=== PATIENT | male | born 2000 | race Caucasian/White ===

== ENCOUNTER 2019-08-23 23:33 | Emergency (ER) | payer BC ==
[~2019-08-23] VITALS: Ht 175.3 cm; Wt 70.8 kg
[2019-08-23 23:38] VITALS: BP 117/77
[2019-08-23] MEDS ORDERED: NACL 0.9% 1,000 ML IV ONE (23:45)
[2019-08-23] MEDS ORDERED: ONDANSETRON 4 MG/2 ML VIAL IVP ONE (23:45)
[2019-08-24 06:17] VITALS: BP 118/77
== END 2019-08-24 06:18 | disposition home or self-care (01) ==
LOC: MED 23:33
DX: F10.129 Alcohol abuse with intoxication, unspecified (principal); Y90.9 Presence of alcohol in blood, level not specified
CPT/HCPCS: 96361; 96374; 99283; J2405; J7030